=== PATIENT | male | born 1950 | race Caucasian/White ===

== ENCOUNTER 2017-11-05 17:16 | Emergency (ER) | payer MEDICARE, BC ==
--- NOTE | 2017-11-05 18:48 | EDM.PDOC ---
ED HPI GENERAL MEDICAL PROBLEM - General Chief Complaint: Lower Extremity Injury/Pain Stated Complaint: NAIL IN LEG Time Seen by Provider: 11/05/17 17:27 Source of Information: Reports: Patient, RN Notes Reviewed - History of Present Illness INITIAL COMMENTS - FREE TEXT/NARRATIVE: 67-year-old male presents with nail gun injury to his right thigh. He was shooting some finishing type nails with a nail gun and the gun accidentally discharged a nail into the right thigh about 6 inches above the knee. The nail did go completely into the muscle tissue with no remaining part of nail visible but a visible entrance wound. Have localized pain. there has not been much bleeding. He is ambulatory with some discomfort. The pain does not radiate. No distal numbness or tingling at this time. Right Upper Leg Pain Score (Numeric/FACES): 5 - Related Data Allergies Allergy/AdvReac Type Severity Reaction Status Date / Time clindamycin Allergy Hives Verified 11/05/17 17:22 Home Meds: Home Meds Cephalexin 500 mg PO QID #20 capsule 11/05/17 [Rx] Hydrocodone/Acetaminophen [Rochelle 5-325] 1 tab PO Q6HR PRN #14 tablet 11/05/17 [ Rx] Past Medical History - Past Health History Medical/Surgical History: Denies Medical/Surgical History Social & Family History - Tobacco Use Smoking Status *Q: Never Smoker - Recreational Drug Use Recreational Drug Use: No Review of Systems - Review of Systems Review Of Systems: See Below Constitutional: Reports: No Symptoms Eyes: Reports: No Symptoms Ears: Reports: No Symptoms Mouth/Throat: Reports: No Symptoms Respiratory: Denies: Shortness of Breath Cardiovascular: Denies: Chest Pain GI/Abdominal: Denies: Abdominal Pain, Nausea, Vomiting Musculoskeletal: Reports: Muscle Pain (Right thigh) Skin: Reports: Other Neurological: Denies: Numbness (Puncture wound right thigh), Tingling ED EXAM, GENERAL - Physical Exam Exam: See Below General Appearance: Alert, Mild Distress Throat/Mouth: Normal Inspection Head: Atraumatic Neck: Supple, Full Range of Motion Respiratory/Chest: No Respiratory Distress, Lungs Clear Cardiovascular: Regular Rate, Rhythm Extremities: Other (There is puncture wound visible right thigh, swelling, bleeding or bruising present very mild localized tenderness, no foreign body palpable underneath the skin.) Neurological: Alert, Oriented, No Motor/Sensory Deficits Skin Exam: Warm, Dry, Normal Color Course - Vital Signs Last Recorded V/S: Last Vital Signs Temp 97.3 F 11/05/17 17:23 Pulse 90 11/05/17 17:23 Resp 18 11/05/17 17:23 BP 140/108 H 11/05/17 17:23 Pulse Ox 96 11/05/17 17:23 - Orders/Labs/Meds Meds: Medications Discontinued Medications Generic Name Dose Route Start Last Admin Trade Name Freq PRN Reason Stop Dose Admin Hydrocodone Bitart/Acetaminophen 1 tab 11/05/17 19:05 11/05/17 19:19 Rochelle 325-5 Mg PO 11/05/17 19:06 1 tab ONETIME ONE Administration Cephalexin 500 mg 11/05/17 19:01 11/05/17 19:15 Keflex PO 11/05/17 19:02 500 mg ONETIME ONE Administration Diphtheria/Tetanus/Acell Pertussis 0.5 ml 11/05/17 19:01 11/05/17 19:13 Adacel IM 11/05/17 19:02 0.5 ml .ONCE ONE Administration - Re-Assessments/Exams Free Text/Narrative Re-Assessment/Exam: 11/06/17 23:00. X-rays obtained at time of visit did show a relatively small finishing type nail deeply embedded in the right leg right upper against the femur. See radiology report for details. I did discuss this with Kahlil Vang. He does suggest oral antibiotics for 5 days make sure he is good with his tetanus and he will see him in about a week at the clinic. At this time there is no plan or intention for nail removal. Departure - Departure Time of Disposition: 18:47 Disposition: Home, Self-Care 01 Condition: Fair Clinical Impression: Injury by nail gun Qualifiers: Encounter type: initial encounter Qualified Code(s): W29.4XXA - Contact with nail gun, initial encounter - Discharge Information Prescriptions: Hydrocodone/Acetaminophen [Rochelle 5-325] 1 tab PO Q6HR PRN #14 tablet PRN Reason: Pain Cephalexin 500 mg PO QID #20 capsule Referrals: Artur Esquivel MD [Primary Care Provider] - Forms: ED Department Discharge Additional Instructions: Rest and elevate leg as much as possible, Tylenol 2-3 times daily for mild to moderate discomfort or you may take the stronger hydrocodone 1 tab every 6 hours if needed for severe pain. Do not try to drive or work when taking hydrocodone, do not take Tylenol and hydrocodone at the same time unless you break the pain pill in half. For lower dosage you can take 1/2 tablet hydrocodone q 6 hr along with a 500 mg tylenol. Cephalexin antibiotic 500 mg 4 times daily for 5 days, follow-up with Dr. Arevalo, Orthopedist in about 1 week. Call [phone] for appt.
[2017-11-05] MEDS ORDERED: Cephalexin 500 MG Cap PO ONE (19:01)
[2017-11-05] MEDS ORDERED: Diphtheria,Pertussis(Acell),Tetanus Vaccine 0.5 ML SDV IM ONE (19:01)
[2017-11-05] MEDS ORDERED: Acetaminophen/HYDROcodone 325-5 MG Tab PO ONE (19:05)
--- NOTE | 2017-11-06 12:02 | CR ---
Right femur: AP and lateral views of the right femur were obtained. Metallic foreign body projected within the lateral thigh adjacent to the femoral shaft. No bony fracture is appreciated. Soft tissue swelling is present. No additional abnormality is seen. Impression: 1. Metallic foreign body as noted above. No acute bony abnormality is identified. Diagnostic code #3
== END 2017-11-05 19:26 | disposition home or self-care (01) ==
LOC: JD.ED 17:16
DX: S71.131A Puncture wound without foreign body, right thigh, initial encounter (principal); Z88.1 Allergy status to other antibiotic agents; Z23 Encounter for immunization; W29.4XXA Contact with nail gun, initial encounter
CPT/HCPCS: 73552; 90471; 90715; 99283; A9270

== ENCOUNTER 2019-11-10 06:35 | Day surgery (SDC) | payer MEDICARE, BC ==
[2019-11-10] MEDS ORDERED: Sodium Chloride 0.9% 10 ML Syringe FLUSH PRN (07:00)
[2019-11-10] MEDS ORDERED: Lactated Ringers 1,000 ML IV SCH (07:00)
[2019-11-10] MEDS ORDERED: Lidocaine 1%/Sod Bicarbonate in NS 8.4% 1 ML Syringe IDERM PRN (07:00)
[2019-11-10] MEDS ORDERED: Ropivacaine 0.5% 5 MG/ML 30 ML SDV ONE (07:24)
[2019-11-10] MEDS ORDERED: EPINEPHrine 1 MG/ML SDV ONE (07:24)
[2019-11-10] MEDS ORDERED: ceFAZolin 1 GM Vial ONE (07:31)
[2019-11-10] MEDS ORDERED: Propofol 200 MG/20 ML SDV ONE (07:31)
[2019-11-10] MEDS ORDERED: Lidocaine 1% 4 ML ONE (07:31)
[2019-11-10] MEDS ORDERED: Lactated Ringers 1,000 ML ONE (07:31)
[2019-11-10] MEDS ORDERED: Ondansetron 4 MG/2 ML SDV ONE (07:31)
[2019-11-10] MEDS ORDERED: Dexamethasone 4 MG/ML 5 ML MDV ONE (07:32)
[2019-11-10] MEDS ORDERED: Midazolam 1 MG/ML 2 ML SDV ONE (07:32)
[2019-11-10] MEDS ORDERED: fentaNYL 250 MCG/5 ML SDV ONE (07:32)
[2019-11-10] MEDS ORDERED: Lidocaine 1% 2 ML ONE (07:32)
--- NOTE | 2019-11-10 08:14 | PCM.SN ---
- Free Text/Narrative Note: Interscalene nerve block note with ultrasound guidance for post op pain control Date: 11/10/2019 Start: 741 Time Out: 741 Stop: 756 Procedure: Right interscalene block under US guidance for postoperative pain control requested by Dr. Arevalo Patient chart reviewed, risk/benefits discussed with patient, consent obtained. Patient positioned supine, monitors/alarms on, oxygen placed via nasal cannula at 2 LPM. Right shoulder prepped with chloraprep x2. Sterile drapes placed with aseptic technique. Under US guidance, right subclavian artery visualized along with the brachial plexus. Plexus followed cephalad up to C6 cricoid level, and area localized with 1mls of 1% lidocaine. 22gauge 2 inch stimiplex needle inserted under US and guided to brachial plexus C5-C6 trunks with 0.44mV with stimulation of biceps noted. Stimulation abolished at 0.2mVs. 1ml of Normal Saline injected with loss of stimulation. Incremental injection of 5mls with negative aspiration prior to each injection of 0.5% ropivacaine with 1:200,000 epinephrine. Total volume=30mls. Refer to nurses notes for vital signs and medication administration. Patient tolerated procedure well. No complications noted. Mery Dahl BUSINESS INTELLIGENCE ETL DEVELOPER
--- NOTE | 2019-11-10 08:16 | PCM.PREANE ---
Preanesthetic Assessment - Anesthesia/Transfusion/Family Hx Anesthesia History: Prior Anesthesia Without Reaction Family History of Anesthesia Reaction: No - Review of Systems General: No Symptoms Pulmonary: No Symptoms Cardiovascular: No Symptoms Gastrointestinal: No Symptoms Neurological: No Symptoms, Other (Cervical Neck surgery without residule symptoms noted. ) Other: Reports: None - Physical Assessment NPO Status Date: 11/09/19 NPO Status Time: 19:00 Vital Signs: Last Vital Signs Temp 36.2 C 11/10/19 06:40 Pulse 58 L 11/10/19 06:40 Resp 16 11/10/19 06:40 BP 152/88 H 11/10/19 06:40 Pulse Ox 97 11/10/19 06:40 Height: 1.78 m Weight: 79.379 kg ASA Class: 2 Mental Status: Alert & Oriented x3 Airway Class: Mallampati = 2 Dentition: Reports: Normal Dentition, Caries Thyro-Mental Finger Breadths: 3 Mouth Opening Finger Breadths: 3 ROM/Head Extension: Full Lungs: Clear to Auscultation, Normal Respiratory Effort Cardiovascular: Regular Rate, Regular Rhythm - Lab Values: Laboratory Last Values MRSA (PCR) Negative 11/04/19 10:54 - Allergies Allergies/Adverse Reactions: Allergies Allergy/AdvReac Type Severity Reaction Status Date / Time clindamycin Allergy Hives Verified 11/07/19 13:44 - Anesthesia Plan Pre-Op Medication Ordered: Anxiolytic - Acknowledgements Anesthesia Type Planned: General Anesthesia, Regional Block (Interscalene nerve block for post op pain control with ultrasound guidance.) Pt an Appropriate Candidate for the Planned Anesthesia: Yes Alternatives and Risks of Anesthesia Discussed w Pt/Guardian: Yes Pt/Guardian Understands and Agrees with Anesthesia Plan: Yes PreAnesthesia Questionnaire - Past Health History Medical/Surgical History: Denies Medical/Surgical History HEENT History: Reports: None Cardiovascular History: Reports: None Respiratory History: Reports: None Gastrointestinal History: Reports: None, Colon Polyp Genitourinary History: Reports: None OUTREACH COUNSELOR History: Reports: None Musculoskeletal History: Reports: Back Pain, Chronic Psychiatric History: Reports: None Endocrine/Metabolic History: Reports: None Hematologic History: Reports: None Immunologic History: Reports: None Oncologic (Cancer) History: Reports: None Dermatologic History: Reports: None - Past Surgical History Head Surgeries/Procedures: Reports: None HEENT Surgical History: Reports: None Cardiovascular Surgical History: Reports: None Respiratory Surgical History: Reports: None GI Surgical History: Female Surgical History: Reports: None Male Surgical History: Reports: None Endocrine Surgical History: Reports: None Neurological Surgical History: Reports: Other (See Below) Other Neurological Surgeries/Procedures: neck surgery, back surgery Oncologic Surgical History: Reports: None Dermatological Surgical History: Reports: None - SUBSTANCE USE Smoking Status *Q: Never Smoker - HOME MEDS Home Medications: Home Meds Acetaminophen/HYDROcodone [Leeper 325-5 MG] 1 - 2 tab PO Q6H PRN #40 tablet 11/10 [Rx] Cyclobenzaprine [Flexeril] 10 mg PO BID PRN #30 tab 11/10/19 [Rx] - CURRENT (IN HOUSE) MEDS Current Meds: Current Medications Epinephrine HCl (Adrenalin) 3 mg IRR ONETIME SUZANNA Stop: 11/10/19 23:00 Lactated Ringer's (Ringers, Lactated) 1,000 mls @ 125 mls/hr IV ASDIRECTED SUZANNA Stop: 11/10/19 23:00 Last Admin: 11/10/19 07:05 Dose: 125 mls/hr Lidocaine/Sodium Bicarbonate (Buffered Lidocaine 1% In Ns 8.4%) 0.25 ml IDERM ONETIME PRN PRN Reason: Prior to IV Start Stop: 11/10/19 18:00 Last Admin: 11/10/19 07:05 Dose: 0.25 ml Sodium Chloride (Saline Flush) 10 ml FLUSH ASDIRECTED PRN PRN Reason: Keep Vein Open Stop: 11/10/19 18:00 Discontinued Medications Cefazolin Sodium (Ancef) Confirm Administered Dose 2 gm .ROUTE .STK-MED ONE Stop: 11/10/19 07:32 Dexamethasone (Dexamethasone) Confirm Administered Dose 20 mg .ROUTE .STK-MED ONE Stop: 11/10/19 07:33 Epinephrine HCl (Adrenalin) Confirm Administered Dose 1 mg .ROUTE .STK-MED ONE Stop: 11/10/19 07:25 Fentanyl (Sublimaze) Confirm Administered Dose 250 mcg .ROUTE .STK-MED ONE Stop: 11/10/19 07:33 Lidocaine HCl (Xylocaine-Mpf 1%) Confirm Administered Dose 4 mls @ as directed .ROUTE .STK-MED ONE Stop: 11/10/19 07:32 Lactated Ringer's (Ringers, Lactated) Confirm Administered Dose 1,000 mls @ as directed .ROUTE .STK-MED ONE Stop: 11/10/19 07:32 Lidocaine HCl (Xylocaine-Mpf 1%) Confirm Administered Dose 2 mls @ as directed .ROUTE .STK-MED ONE Stop: 11/10/19 07:33 Midazolam HCl (Versed 1 Mg/Ml) Confirm Administered Dose 2 mg .ROUTE .STK-MED ONE Stop: 11/10/19 07:33 Ondansetron HCl (Zofran) Confirm Administered Dose 4 mg .ROUTE .STK-MED ONE Stop: 11/10/19 07:32 Propofol (Diprivan 20 Ml) Confirm Administered Dose 400 mg .ROUTE .STK-MED ONE Stop: 11/10/19 07:32 Ropivacaine (Naropin 0.5%) Confirm Administered Dose 30 ml .ROUTE .STK-MED ONE Stop: 11/10/19 07:25
[2019-11-10] MEDS ORDERED: EPINEPHrine 1 MG/ML 30 ML MDV IRR SCH (09:00)
[2019-11-10] MEDS ORDERED: ePHEDrine/Normal Saline 25 MG/5 ML Syringe ONE (09:14)
[2019-11-10] MEDS ORDERED: fentaNYL 100 MCG/2 ML SDV IVPUSH PRN (09:41)
[2019-11-10] MEDS ORDERED: Ondansetron 4 MG/2 ML SDV IVPUSH PRN (09:41)
[2019-11-10] MEDS ORDERED: HYDROmorphone 0.5 MG/0.5 ML Syringe IVPUSH PRN (09:41)
--- NOTE | 2019-11-10 10:57 | PCM.POSTAN ---
POST ANESTHESIA ASSESSMENT - MENTAL STATUS Mental Status: Alert, Oriented - VITAL SIGNS Vital Signs: Last Vital Signs Temp 36.2 C 11/10/19 06:40 Pulse 58 L 11/10/19 06:40 Resp 16 11/10/19 06:40 BP 152/88 H 11/10/19 06:40 Pulse Ox 97 11/10/19 06:40 1046 97.4F 116/68 67 14 92% - RESPIRATORY Respiratory Status: Respiratory Rate WNL, Airway Patent, O2 Saturation Stable, Supplemental Oxygen - CARDIOVASCULAR CV Status: Pulse Rate WNL, Blood Pressure Stable - GASTROINTESTINAL GI Status: No Symptoms - PAIN Pain Score: 0 - POST OP HYDRATION Hydration Status: Adequate & Stable
--- NOTE | 2019-11-10 11:45 | PCM48HPAN ---
Post Anesthesia Note - EVALUATION WITHIN 48HRS OF ANESTHETIC Vital Signs in Normal Range: Yes Patient Participated in Evaluation: Yes Respiratory Function Stable: Yes Airway Patent: Yes Cardiovascular Function Stable: Yes Hydration Status Stable: Yes Pain Control Satisfactory: Yes Nausea and Vomiting Control Satisfactory: Yes Mental Status Recovered: Yes Vital Signs: Last Vital Signs Temp 36.3 C 11/10/19 11:30 Pulse 58 L 11/10/19 11:30 Resp 11 L 11/10/19 11:30 BP 118/70 11/10/19 11:30 Pulse Ox 94 L 11/10/19 11:30
--- NOTE | 2019-11-10 17:51 | PCM.OPNOTE ---
- General Post-Op/Procedure Note Date of Surgery/Procedure: 11/10/19 Operative Procedure(s): right shoulder video arthroscopy with large rotator cuff repair, subacromial decompression and extensive debridement Pre Op Diagnosis: right shoulder rotator cuff tear with impingement Post-Op Diagnosis: Same Anesthesia Technique: General ET Tube, Regional Block Primary Surgeon: Ben Arevalo Anesthesia Provider: Janice Dahl Family Educator: Melvina Calvillo EBL in mLs: 5 Complications: None Condition: Good Free Text/Narrative:: Intake & Output 11/10/19 11/10/19 11/10/19 06:59 14:59 22:59 Intake Total 540 Balance 540
--- NOTE | 2019-11-10 18:31 | OR ---
DATE OF OPERATION: 11/10/2019 SURGEON: Ben Arevalo MD OPERATION PERFORMED: Right shoulder video-arthroscopy with large rotator cuff repair, subacromial decompression, and extensive debridement. PREOPERATIVE DIAGNOSIS: Right shoulder rotator cuff tear with impingement. POSTOPERATIVE DIAGNOSIS: Right shoulder rotator cuff tear with impingement. ANESTHESIA: General endotracheal intubation with regional interscalene block. ANESTHESIA PROVIDER: Britta Chapman CRNA. SQL SERVER CONSULTANT: Melvina Calvillo PA-C. ESTIMATED BLOOD LOSS: Less than 5 mL. COMPLICATIONS: None. CONDITION: Stable. DESCRIPTION OF PROCEDURE: The patient was identified in the preop holding area. Proper site was marked and identified by the surgeon. The patient was taken back to the operative theater, where after adequate anesthesia, the patient was placed in the lazy left lateral decubitus position. A wedge was placed posteriorly. The patient was secured to the table. The right upper extremity was then sterilely prepped and draped in the usual sterile fashion. An OR time-out was performed. The patient received 2 g IV Ancef. Ten pounds of traction was then applied to the right upper extremity. A standard posterior incision was made. Scope trocar was introduced to the glenohumeral joint. With the use of the spinal needle, anterior portal was then created. The patient was noted to have a previous rupture of the proximal biceps or the long head of the biceps. At this time, I did do an extensive debridement of the synovitis that he had intra-articularly as well as of the superior labrum that had loose flaps. The subscapularis tendon was intact. The patient was noted to have a full-thickness rotator cuff tear of the supraspinatus. At this time, he had very minimal chondromalacia either at the glenoid or the humeral head. Attention was turned to the subacromial space. The patient was noted to have significant fraying of the CA ligament as well as the undersurface of the acromion as well as extensive bursitis. A lateral portal was created with the use of a spinal needle. An extensive debridement was done of the subacromial space. The patient was noted to have a hooked acromion. So at this point, the patient would undergo a subacromial decompression as well. Attention was turned to the rotator cuff tear. A good bony bleeding bed was then placed on the greater tuberosity, where the supraspinatus tear was. It was a U-shaped tear. I put in 1 anterior 4.75 mm Arthrex SwiveLock anchor, which was triple loaded with 4 limbs of FiberWire and 2 limbs of FiberTape, and then posteriorly I placed another 4.75 mm Arthrex SwiveLock anchor for a double anchor medial row repair. The hand limbs of suture were then brought anterior to posterior, and then once these were passed in succession, the FiberWire was all tied and all limbs were then cut for the medial repair. In a crosswise fashion, two more 4.75 mm Arthrex SwiveLock anchors were brought out laterally and placed laterally for a lateral repair. The crosswise fashion of FiberTape was then placed over the tear, and it was found to have adequate watertight yazidi of the footprint. At this time using 4 full-radius yevgeniy, a subacromial decompression was done to smooth the border of the undersurface of the acromion with the posterior portion. At this time, excess saline was drained from the shoulder. 3-0 nylon suture was used for closure of the skin. The patient was placed in a pillow sling and a sterile soft dressing, and sent to the PACU in stable condition. KING /[id number]
== END 2019-11-10 14:15 | disposition home or self-care (01) ==
LOC: JD.SDS 06:35
PROVIDERS: ATTEND Orthopaedic Surgery
DX: M75.121 Complete rotator cuff tear or rupture of right shoulder, not specified as traumatic (principal); M65.9 Synovitis and tenosynovitis, unspecified; M75.51 Bursitis of right shoulder; M94.211 Chondromalacia, right shoulder; G89.18 Other acute postprocedural pain; Z88.1 Allergy status to other antibiotic agents
CPT/HCPCS: 29823; 29826; 29827; 64415; 87641; J0171; J0690; J1100; J2001; J2250; J2405; J2704; J2795; J3010; J7050; J7120; 01630; C1713

== ENCOUNTER 2022-07-27 12:06 | Day surgery (SDC) | payer MEDICARE, BC ==
[~2022-07-27 12:06] MED LIST: Cefuroxime 10 MG/ML SYRINGE EYELF SCH; Lidocaine 1% PF 2 ML SDV INJECT SCH; Pilocarpine 4% Ophth Soln 15 ML Bot EYELF SCH
[2022-07-27] MEDS: Polymyxin B/Trimethoprim 10 ML Bottle EYELF SCH ×3 (12:46→14:30)
[2022-07-27] MEDS: Brimonidine 0.2% Ophth Soln 5 ML Bottle EYELF SCH ×3 (12:51→14:30)
[2022-07-27] MEDS: Phenylephrine 2.5% Ophth Soln 2 ML Bot EYELF SCH ×5 (12:57→14:14)
[2022-07-27] MEDS: Tropicamide 1% Ophth Soln 15 ML Bottle EYELF SCH ×4 (13:00→13:51)
[2022-07-27] MEDS: Tetracaine HCl/PF 0.5% 4 ML Bottle EYEBOTH SCH ×4 (14:01→14:22)
== END 2022-07-27 14:45 | disposition home or self-care (01) ==
LOC: JD.SDS 12:06
PROVIDERS: ATTEND Ophthalmology
DX: H25.813 Combined forms of age-related cataract, bilateral (principal); H35.373 Puckering of macula, bilateral; H43.813 Vitreous degeneration, bilateral; G89.29 Other chronic pain; M54.9 Dorsalgia, unspecified; Z98.890 Other specified postprocedural states; Z88.1 Allergy status to other antibiotic agents; Z79.899 Other long term (current) drug therapy
CPT/HCPCS: 66984; J0697; C1780

== ENCOUNTER 2023-08-10 15:54 | Emergency (ER) | payer MEDICARE, BC ==
[2023-08-10] MEDS ORDERED: Lidocaine 1% 10 ML MDV INJECT ONE (16:40)
== END 2023-08-10 18:30 | disposition home or self-care (01) ==
LOC: JD.ED 15:54
DX: S56.422A Laceration of extensor muscle, fascia and tendon of left index finger at forearm level, initial encounter (principal); S61.215A Laceration without foreign body of left ring finger without damage to nail, initial encounter; S61.213A Laceration without foreign body of left middle finger without damage to nail, initial encounter; Z88.1 Allergy status to other antibiotic agents; W26.8XXA Contact with other sharp object(s), not elsewhere classified, initial encounter
CPT/HCPCS: 73130-26-LT; 73130-LT; 99282